=== PATIENT | female | born 1940 | race Caucasian/White ===

== ENCOUNTER 2025-09-13 19:42 | Observation (INO) ==
[2025-09-13 20:02] LABS: IMMATURE GRANULOCYTE # (AUTO) 0.0 (0.0-1.0); IMMATURE GRANULOCYTE % (AUTO) 0.1 % (0.0-5.0); RDW COEFFICIENT OF VARIATION 14.2 % (11.6-14.8)
--- NOTE | 2025-09-13 20:11 | ED.PDOC ---
General HPI ED Provider: Dr. RODO MCDOWELL MD Chief Complaint: Dizziness Stated Complaint: [facility]. She has h/o Alzheimer's dementia. Was reportedly standing up from the toilet this evening and seemed to feel dizzy and fell backwards. Her family caught her and she did not fall or hit her head. She did not lose consciousness. Pt is unable to give further history at this time other than yes or no, which apparently is her baseline mental status. She denies pain. Time Seen by Provider: 09/13/25 19:45 Mode of Arrival: Ambulance Information Source: Patient, Family and EMT Exam Limitations: Dementia Primary Care Provider: WARREN COOK Nursing and Triage Documentation Reviewed and Agree: Yes Opioid Naive vs. Tolerant What is Opioid Naive?: *Opioid Naive implies the patient is not already taking opioids or not chronically receiving opioids on a daily basis. *PRN dosing is not "usually" associated with tolerance. *Patients are at higher risk of over-sedation and aspiration. What is Opioid Tolerant?: *Opioid Tolerance implies less than the expected response to an opioid. *Acquired tolerance is defined by the patient taking 60mg of oral morphine daily (or equianalgesic dose of another opioid) for 1 week or more. *Often associated with chronic pain. *May take more than usual dose to achieve desired pain control. Review of Systems Review Of Systems Constitutional: Reports No symptoms PFSH PFSH Medical History Thyroid disease E07.9 - Disorder of thyroid, unspecified (ICD-10) Dry mouth R68.2 - Dry mouth, unspecified (ICD-10) Hypercholesteremia E78.00 - Pure hypercholesterolemia, unspecified (ICD-10) Family History FATHER Lung cancer Mother Cervical cancer Alzheimer disease Social History Smoking and tobacco status: Never smoker Surgical History Status post tonsillectomy Z90.89 - Acquired absence of other organs (ICD-10) History of section Z98.891 - History of uterine scar from previous surgery (ICD-10) Status post tonsillectomy and adenoidectomy Z90.89 - Acquired absence of other organs (ICD-10) Physical Exam Physical Exam Appearance: Reports Well-appearing and Well-nourished Ill-appearing: None Pain Distress: None Eyes: Reports Conjunctiva clear ENT: Reports Nose normal Neck: Supple Respiratory: Reports Airway patent, Breath sounds clear, Breath sounds equal and Respirations nonlabored Cardiovascular: Reports RRR GI/: Reports Soft and Nontender Musculoskeletal: Reports ROM intact Skin: Reports Warm and Dry Neurological: Reports Alert; Denies Focal Deficit Psychiatric: Reports Not Examined Interpretation EKG Interpretation EKG Interpretation By: ED Physician Time of EKG #1: 20:03 Rate: Normal Rhythm: Sinus Ectopy: None Interpretation: Nonspecific ST and T wave abnormalities Re-Evaluation Re-Evaluation Additional Comments: Discussed EKG, lab and urine results with family. They state she did become completely limp and turned blue during the episode earlier. They confirm she did not fall or hit her head; no seizure activity seen. She is back to her baseline now. No arrhythmias noted on EKG or monitor. Labs show mild hypokalemia but otherwise unremarkable. Urinalysis shows 5-10 WBCs and 1+ bacteria, but also epithelials. I gave her a dose of Rocephin here. She is at assisted living, so feel that she would benefit from admission for overnight obs and cardiac monitoring and family is agreeable with plan. Pt is a DNR. Physician Notification Case Discussed Physician Notified: Cassidy Enciso hospitalist Time of Notification: 21:30 Comments: Agrees to admit patient here. Requests orthostatics. Course Course 09/13/25 19:54 09/13/25 19:54 Orders, Labs, Meds: Lab Review 09/13/25 09/13/25 19:54 20:30 WBC 8.06 RBC 3.80 L Hgb 11.6 L Hct 36.9 L MCV 97.1 MCH 30.5 MCHC 31.4 L RDW Coeff of [place] 14.2 Plt Count 239 Immature Gran % (Auto) 0.1 Neut % (Auto) 41.4 L Lymph % (Auto) 49.3 [place] % (Auto) 6.7 Eos % (Auto) 1.6 Baso % (Auto) 0.9 Neut # (Auto) 3.3 Lymph # (Auto) 4.0 H [place] # (Auto) 0.5 Eos # (Auto) 0.1 Baso # (Auto) 0.1 Immature Gran # (Auto) 0.0 Sodium 137.0 Potassium 3.40 L Chloride 106.0 Carbon Dioxide 23.0 Anion Gap 11.40 BUN 15.0 Creatinine 0.90 Estimated GFR (MDRD) 60.00 BUN/Creatinine Ratio 16.66 Glucose 142.0 H Calcium 8.60 Magnesium 2.08 Total Bilirubin 0.40 AST 21.0 ALT 12.0 Alkaline Phosphatase 89.0 Total Protein 6.70 Albumin 3.60 Globulin 3.10 Albumin/Globulin Ratio 1.16 Urine Color Yellow Urine Clarity Slightly Urine pH 5.0 Ur Specific [place] >=1.030 Urine Protein Trace H Urine Glucose (UA) Negative Urine Ketones Trace H Urine Blood Trace-intact H Urine Nitrite Negative Urine Bilirubin 1+ H Urine Urobilinogen 1.0 H Ur Leukocyte Esterase 1+ H Urine Microscopic RBC 0-2 Urine Microscopic WBC 5-10 Ur Squamous Epith Cells 10-20 Urine Bacteria 1+ Urine Mucus 1+ Orders Category Date Time Status EKG-(ED & IP/OBS ONLY) Stat CARDIO 09/13/25 19:45 Completed PULSE OX [CONTINUOUS PULSE OX (NURSING)] PULSEOX CARE 09/13/25 19:45 Active Manager Sap [ED IMAGE SCIENTIST APPLIED] .ONCE EMERGENCY 09/13/25 19:45 Active IV [ED IV/MEDIPORT/POWERPORT] .ONCE EMERGENCY 09/13/25 19:45 Active Orthostatic Vital Signs [ED ORTHOSTATIC VITAL SIGNS] . EMERGENCY 09/13/25 21:38 Active ONCE CBC W/ AUTO DIFF Stat LAB 09/13/25 19:54 Completed CMP [COMPREHENSIVE METABOLIC PANEL] Stat LAB 09/13/25 19:54 Completed MAGNESIUM Stat LAB 09/13/25 19:54 Completed URINALYSIS C & S IF INDICATED Stat LAB 09/13/25 20:30 Completed URINE CULTURE Stat LAB 09/13/25 20:30 Received 0.9 % Sodium Chloride [Saline Flush] Meds 09/13/25 19:45 Active 1 syr IVF PRN PRN Ceftriaxone 1 gm Vial [Rocephin 1 gm Vial] Meds 09/13/25 21:04 Discontinued 1 gm IVP ONCE ONE Medications Generic Name Dose Route Start Last Admin Trade Name Freq PRN Reason Stop Dose Admin Sodium Chloride 1 syr 09/13/25 19:45 0.9% Sodium Chloride 10 Ml Disp.Syrin IVF PRN PRN To flush IV Discontinued Medications Generic Name Dose Route Start Last Admin Trade Name Freq PRN Reason Stop Dose Admin Ceftriaxone Sodium 1 gm 09/13/25 21:04 09/13/25 21:22 Ceftriaxone 1 Gm Vial IVP 09/13/25 21:05 1 gm ONCE ONE Administration Vital Signs: Temp Pulse Resp BP Pulse Ox 09/13/25 19:47 97.9 F 82 21 H 95/61 96 Discharge Plan Discharge Patient Disposition: PLACED OBSERVATION Discharge Problem: Syncope Qualifiers: Syncope type: unspecified Qualified Code(s): R55 - Syncope and collapse Did you review [place] DENT[employer] CER[employer]IST HELPER for ALL controlled substances?: Not Applicable ED Provider: RODO MCDOWELL Condition: Stable
[2025-09-13 20:16] LABS: CREATININE 0.9 mg/dL (0.60-1.30)
[2025-09-13 20:49] LABS: GLUCOSE, URINE (UA) Negative (NEGATIVE); LEUKOCYTE ESTERASE ,URINE 1+ (NEGATIVE); URINE, BLOOD Trace-intact (NEGATIVE)
[2025-09-13 21:03] LABS: URINE RBC, MICROSCOPIC 0-2 (0-2)
[2025-09-13] MEDS: ROCEPHIN 1 GM VIAL IVP ONE (21:22)
[2025-09-13] MEDS ORDERED: ZOFRAN SDV IVP PRN (21:51)
[2025-09-13] MEDS ORDERED: TYLENOL PO PRN (21:51)
[2025-09-13 23:27] VITALS: RESP 18; BMI 26.1
[2025-09-14 05:15] VITALS: BP 150/72; PULSE 72; TEMP 98
[2025-09-14 05:46] LABS: IMMATURE GRANULOCYTE # (AUTO) 0.0 (0.0-1.0); IMMATURE GRANULOCYTE % (AUTO) 0.3 % (0.0-5.0); RDW COEFFICIENT OF VARIATION 14.1 % (11.6-14.8)
[2025-09-14 05:55] LABS: CREATININE 0.81 mg/dL (0.60-1.30)
[2025-09-14] MEDS ORDERED: NAMENDA PO SCH (09:10)
[2025-09-14] MEDS: ASPIRIN EC PO SCH (09:42)
[2025-09-14] MEDS: NAMENDA PO SCH (09:43)
[2025-09-14] MEDS: SYNTHROID PO SCH (09:43)
[2025-09-14] MEDS: CELEXA PO SCH (09:43)
[2025-09-14] MEDS: VITAMIN D PO SCH (09:43)
--- NOTE | 2025-09-14 10:18 | PCM.SS ---
Provider Provider: MONIKA MARCUS PA-C, [facility] Admission Date Admission Date: 09/13/25 Discharge Date Discharge Date: 09/14/25 Primary Care Physician Primary Care Physician: WARREN COOK Chief Complaint Reason For Visit: SYNCOPE History of Present Illness History of Present Illness: Admitted 09/13/25 22:38, this 85 year old /WHITE/F with pmhx of dementia, hypothyroidism, hyperlipidemia, who presents to ER with syncopal episode. Family states patient had been on the toilet, had a BM, and she was helping clean patient up when she had LOC. Her respirations were abnormal and patient's lips were noted to be blue. Family states it was about 4 minutes before the patient came to. In ER, patient's labs unremarkable. Vitals normal. Orthostatics normal. EKG unremarkable. Likely a vasovagal syncope. Admitted to same day surgery center to monitor overnight. Today family states patient seems at her baseline, "if not better" than her baseline. She does not answer questions appropriately but clinically is alert, interactive, nontoxic. No other episodes of near syncope/syncope. No events on tele. Discussed we could send home on holter to r/o arrhythmias but family feels it may agitate her further and would prefer not to. Feels more likely to be a vasovagal event as it followed a BM. Enrique tiffanie syncope rule indicates low risk. UA showed suspect UTI but also signs of contaminant. Received rocephin in ER. Culture pending. Discussed with family, will not treat at this time, patient won't take larger pills anyway. Patient has good family support while assisted living. They will monitor her closely. Discharge to home in stable condition. ROS limited due to dementia. [facility] Medical History Thyroid disease E07.9 - Disorder of thyroid, unspecified (ICD-10) Dry mouth R68.2 - Dry mouth, unspecified (ICD-10) Hypercholesteremia E78.00 - Pure hypercholesterolemia, unspecified (ICD-10) Surgical History Status post tonsillectomy Z90.89 - Acquired absence of other organs (ICD-10) History of section Z98.891 - History of uterine scar from previous surgery (ICD-10) Status post tonsillectomy and adenoidectomy Z90.89 - Acquired absence of other organs (ICD-10) Family History FATHER Lung cancer Mother Cervical cancer Alzheimer disease Social History Smoking and tobacco status: Never smoker Alcohol intake: never Medications Mecications: Medications at Discharge (Home Meds & RX) levothyroxine 50 mcg tablet (Synthroid) 50 mcg PO DAILY 03/22/16 citalopram 20 mg tablet 20 mg PO DAILY 05/29/25 melatonin 5 mg chewable tablet 10 mg PO BEDTIME 05/29/25 memantine 10 mg tablet 10 mg PO BID 05/29/25 quetiapine 50 mg tablet 50 mg PO BEDTIME 05/29/25 aspirin 81 mg tablet,delayed release (Adult Aspirin Regimen) 81 mg PO DAILY 09/13/25 cholecalciferol (vitamin D3) 125 mcg (5,000 unit) tablet (Vitamin D3) 125 mcg PO DAILY 09/13/25 Allergies Allergies Allergy/AdvReac Type Severity Reaction Status Date / Time No Known Allergies Allergy Verified 09/13/25 19:56 Review of Systems Constitutional: Denies Fever Head: Reports Normocephalic and Atraumatic Gastrointestinal: Denies Nausea or Vomiting Neurological: Reports Syncope and Loss of Conciousness Physical Examination Appearance: Positive No Apparent Distress and Other (+alert, interactive, at her baseline mentation per family ) Head: Positive Normocephalic and Atraumatic Heart: Positive RRR Respiratory: Positive Airway patent, Breath Sounds Clear, Bilaterally and Respirations Nonlabored; Negative Crackles, Rhonchi or Wheezes GI/: Positive Soft, Nontender, Bowel sounds normal and No Distention Neurological: Positive Alert and Disoriented Psychiatric: Positive Affect Appropriate and Mood Appropriate; Negative Normal Judgement or Normal Insight Vital Signs (Last 4 Hours) Vital Signs Last 4 Hours: Vital Signs: Last 4 Hours 09/14/25 07:00 09/14/25 07:00 09/14/25 07:00 O2 Sat by Pulse Oximetry 95 Oxygen Delivery Method Room Air Room Air Telemetry Type Remote Telemetry Telemetry Monitoring Continues Telemetry Heart Rate 76 Telemetry SPO2 94 EKG MS Interval 0.12 EKG QRS Interval 0.06 Telemetry Strip Reading SR Pulse Oximetry Type Remote Telemetry Pulse Oximetry Monitoring Continues 09/14/25 08:00 09/14/25 09:00 09/14/25 10:00 O2 Sat by Pulse Oximetry Oxygen Delivery Method Room Air Room Air Room Air Telemetry Type Telemetry Monitoring Telemetry Heart Rate Telemetry SPO2 EKG MS Interval EKG QRS Interval Telemetry Strip Reading Pulse Oximetry Type Pulse Oximetry Monitoring Labs This Visit Labs This Visit: Labs This Visit 09/13/25 09/13/25 09/14/25 19:54 20:30 05:36 WBC 8.06 7.39 RBC 3.80 L 3.75 L Hgb 11.6 L 11.4 L Hct 36.9 L 36.5 L MCV 97.1 97.3 MCH 30.5 30.4 MCHC 31.4 L 31.2 L RDW Coeff of [place] 14.2 14.1 Plt Count 239 240 Immature Gran % (Auto) 0.1 0.3 Neut % (Auto) 41.4 L 54.2 Lymph % (Auto) 49.3 36.5 [place] % (Auto) 6.7 7.4 Eos % (Auto) 1.6 0.9 Baso % (Auto) 0.9 0.7 Neut # (Auto) 3.3 4.0 Lymph # (Auto) 4.0 H 2.7 [place] # (Auto) 0.5 0.6 Eos # (Auto) 0.1 0.1 Baso # (Auto) 0.1 0.1 Immature Gran # (Auto) 0.0 0.0 Sodium 137.0 137.8 Potassium 3.40 L 4.10 Chloride 106.0 107.2 H Carbon Dioxide 23.0 26.5 Anion Gap 11.40 8.20 BUN 15.0 12.0 Creatinine 0.90 0.81 Estimated GFR (MDRD) 60.00 67.00 BUN/Creatinine Ratio 16.66 14.81 Glucose 142.0 H 95.1 Calcium 8.60 8.75 Magnesium 2.08 Total Bilirubin 0.40 0.43 AST 21.0 22.6 ALT 12.0 10.6 Alkaline Phosphatase 89.0 94.3 Total Protein 6.70 6.66 Albumin 3.60 3.62 Globulin 3.10 3.04 Albumin/Globulin Ratio 1.16 1.19 Urine Color Yellow Urine Clarity Slightly Urine pH 5.0 Ur Specific [place] >=1.030 Urine Protein Trace H Urine Glucose (UA) Negative Urine Ketones Trace H Urine Blood Trace-intact H Urine Nitrite Negative Urine Bilirubin 1+ H Urine Urobilinogen 1.0 H Ur Leukocyte Esterase 1+ H Urine Microscopic RBC 0-2 Urine Microscopic WBC 5-10 Ur Squamous Epith Cells 10-20 Urine Bacteria 1+ Urine Mucus 1+ Microbiology This Visit 09/13/25 20:30 Urine,Random Urine Culture - Preliminary Review Review Statement: I have independently reviewed and interpreted the labs/EKGs/imaging that were ordered by the ER provider. I have reviewed all outside records that are available currently in our EMR including imaging/notes/labs from previous visits. Plan Reccomendations/Plan: 1. Syncopal episode - tele overnight with no events, patient at her baseline, no further syncopal episodes. 2. Dementia - cont home meds 3. Hypothyroidism - Cont home meds 4. Suspect UTI - possible contaminant, urine culture pending, received rocephin in ER Today family states patient seems at her baseline, "if not better" than her baseline. She does not answer questions appropriately but clinically is alert, interactive, nontoxic. No other episodes of near syncope/syncope. No events on tele. Vitals and labs stable. Discussed we could send home on holter to r/o arrhythmias but family feels it may agitate her further and would prefer not to. Feels more likely to be a vasovagal event as it followed a BM. Enrique tiffanie syncope rule indicates low risk. UA showed suspect UTI but also signs of contaminant. Received rocephin in ER. Culture pending. Discussed with family, will not treat at this time, patient won't take larger pills anyway. Patient has good family support while at assisted living. They will monitor her closely. Discharge to home in stable condition. Discharge Diagnoses: Vasovagal syncope Dementia Hypothyroidism Additional Planning: Case discussed with ED Physician, Dr. Pham. DVT Prophylaxis: Ambulation Advanced Care Plannin minutes spent discussing advance care planning. Admit to: Obs Discussed Plan of Care with Dr. Mikhail Aragon. Review With Patient Reviewed with Patient and Family: Patient and family have been counseled on condition and care plan and have no immediate questions. I have personally discussed and reviewed the patient's visit/current labs/imaging/decision making with Dr. Mikhail Aragon, my supervising attending. Total number of minutes spent with patient [85] min. More than 50% of the time spent with this patient was devoted to counseling and coordination of care. Time of Admission:09/13/25 22:38 Time of Discharge: 09/14/25 1003 Discharge Plan Discharge Discharge Orders: Discharge Patient (ONCE); Ordered 09/14/25 Ordered By: MONIKA MARCUS Activity Restrictions/Additional Instructions: DISCHARGE TO HOME DX: SYNCOPE F/U WITH PCP RETURN WITH WORSENING SYMPTOMS Patient Disposition: DISCHARGE TO ASSIST LIVING Prescriptions: Continued levothyroxine [Synthroid] 50 MCG tablet 50 mcg PO DAILY citalopram 20 mg tablet 20 mg PO DAILY memantine 10 mg tablet 10 mg PO BID quetiapine 50 mg tablet 50 mg PO BEDTIME melatonin 5 mg tablet,chewable 10 mg PO BEDTIME aspirin [Adult Aspirin Regimen] 81 mg tablet,delayed release (DR/EC) 81 mg PO DAILY cholecalciferol (vitamin D3) [Vitamin D3] 125 mcg (5,000 unit) tablet 125 mcg PO DAILY Did you review [place] ELECTRICIAN MASTER for ALL controlled substances?: Not Applicable Discussed opioids are addictive and Narcan is available by prescription or from pharmacy.: No Condition: Stable
[2025-09-14] MEDS ORDERED: MELATONIN PO SCH (21:00)
[2025-09-14] MEDS ORDERED: SEROQUEL PO SCH (21:00)
== END 2025-09-14 10:40 | disposition home or self-care (01) ==
LOC: MEDSURG B 19:42 → ED 19:42 → MEDSURG B 23:05
PROVIDERS: ADMIT Hospitalist; ATTEND Physician Assistant
DX: Z51.81 Encounter for therapeutic drug level monitoring; R55 Syncope and collapse; Z79.899 Other long term (current) drug therapy; F03.90 Unspecified dementia, unspecified severity, without behavioral disturbance, psychotic disturbance, mood disturbance, and anxiety; R82.90 Unspecified abnormal findings in urine; E03.9 Hypothyroidism, unspecified